=== PATIENT | male | born 1995 | race Asian ===

== ENCOUNTER 2016-10-26 10:45 | Emergency (ER) | payer OTHER ==
[~2016-10-26] VITALS: Ht 170.2 cm; Wt 59.9 kg
[2016-10-26 10:48] VITALS: BP 103/62
== END 2016-10-26 11:53 | disposition home or self-care (01) ==
LOC: ED 10:45
DX: S62.637A Displaced fracture of distal phalanx of left little finger, initial encounter for closed fracture (principal); W23.0XXA Caught, crushed, jammed, or pinched between moving objects, initial encounter; Y93.89 Activity, other specified; Y99.8 Other external cause status; Y92.89 Other specified places as the place of occurrence of the external cause
CPT/HCPCS: J2001; Q0092

== ENCOUNTER 2016-11-18 13:32 | Emergency (ER) | payer OTHER | END 2016-11-18 14:49 | disposition left against medical advice (07) | LOC: ED 13:32 | DX: Z53.21 Procedure and treatment not carried out due to patient leaving prior to being seen by health care provider (principal) ==